=== PATIENT | male | born 1970 | race African-American/Black ===

== ENCOUNTER 2018-11-12 20:43 | Emergency (ER) | payer BC, SELFPAY ==
[2018-11-12 22:03] LABS: Absolute Lymphocytes (CBC) 3.3 K/uL (0.7-4.9); Absolute Monocytes 0.9 K/uL (0.1-1.3); Absolute Neutrophil 7.7 K/uL (1.8-8.0); Basophils % 0.8 % (0-1.3); Eosinophils % 2.7 % (0-4.4); Hematocrit 48.4 % (39.6-49.0); Lymphocytes % 26.6 % (15.3-44.8); MPV 8.9 fL (7.6-11.3); Monocytes % 7.5 % (3.3-12.3); RBC Red Blood Cell Count 5.24 M/uL (4.33-5.43)
[2018-11-12 22:15] LABS: Potassium 3.4 mmol/L (3.5-5.1)
--- NOTE | 2018-11-13 00:31 | ER ---
Nurse's Notes [facility] Name: Alex Brady Age: 48 yrs Sex: Male : 1970 Arrival Date: 11/12/2018 Time: 20:48 Bed 13 Private MD: Diagnosis: ORDONTOGENIC NECK ABSCESS Presentation: 11/12 21:04 Presenting complaint: Patient states: "I started out with a toothache I've been on aj1 antibiotics for 2 weeks and the tooth doesn't hurt anymore, but I still have a knot under my jaw, its getting hard and now it hurts to swallow" Denies fever. Transition of care: patient was not received from another setting of care. Onset of symptoms was October 2018. Risk Assessment: Do you want to hurt yourself or someone else? Patient reports no desire to harm self or others. Initial Sepsis Screen: Does the patient meet any 2 criteria? No. Patient's initial sepsis screen is negative. Does the patient have a suspected source of infection? Yes: Other: tooth infection. Care prior to arrival: None. 21:04 Method Of Arrival: [facility] 21:04 Acuity: MAHAMED 4 aj1 Triage Assessment: 21:07 General: Appears in no apparent distress. uncomfortable, Behavior is calm, cooperative, aj1 appropriate for age. Pain: Complains of pain in right jaw. Pain: Pain currently is 10 out of 10 on a pain scale. EENT: swelling noted to right lower jaw. Neuro: Level of Consciousness is awake, alert, obeys commands. Cardiovascular: Patient's skin is warm and dry. Respiratory: Airway is patent Respiratory effort is even, unlabored, Respiratory pattern is regular, symmetrical. Historical: - Allergies: 21:07 PENICILLINS; aj1 - Home Meds: 21:07 Dicyclomine Oral [Active]; clindamycin HCl Oral [Active]; Lovastatin Oral [Active]; aj1 Omeprazole Oral [Active]; - PMHx: 21:07 GERD; Hyperlipidemia; dental caries; aj1 - Immunization history:: Flu vaccine is not up to date. - Social history:: Smoking status: Patient uses tobacco products, denies chronic smoking, but will smoke occasionally. - Ebola Screening: : Patient denies travel to an Ebola-affected area in the 21 days before illness onset. Screenin:10 Abuse screen: Denies threats or abuse. Nutritional screening: No deficits noted. jb4 Tuberculosis screening: No symptoms or risk factors identified. Fall Risk None identified. Assessment: 21:10 General: Appears in no apparent distress. uncomfortable, Behavior is calm, cooperative, jb4 appropriate for age. Pain: Complains of pain in right mandible Pain does not radiate. Pain currently is 4 out of 10 on a pain scale. Quality of pain is described as burning. Neuro: Level of Consciousness is awake, alert, obeys commands, Oriented to person, place, time, situation. Cardiovascular: Patient's skin is warm and dry. Respiratory: Airway is patent Respiratory effort is even, unlabored, Respiratory pattern is regular, symmetrical. GI: No signs and/or symptoms were reported involving the gastrointestinal system. : No signs and/or symptoms were reported regarding the genitourinary system. EENT: Throat is clear is reddened. Derm: Skin is intact, Skin is dry, Skin is normal, Skin temperature is warm Abscess located on right jaw is golf ball sized. Musculoskeletal: Circulation, motion, and sensation intact. Range of motion: intact in all extremities. 22:00 Reassessment: Patient appears in no apparent distress at this time. Patient and/or jb4 family updated on plan of care and expected duration. Pain level reassessed. Patient is alert, oriented x 3, equal unlabored respirations, skin warm/dry/pink. 11/13 02:08 Reassessment: Patient appears in no apparent distress at this time. Patient and/or ed1 family updated on plan of care and expected duration. Pain level reassessed. Patient is alert, oriented x 3, equal unlabored respirations, skin warm/dry/pink. Report called to MARY BETH Peace at [facility] Patient states feeling better. Patient states symptoms have improved. Vital Signs: 11/12 21:07 BP 134 / 103; Pulse 78; Resp 18; Temp 97.9; Pulse Ox 100% on R/A; Weight 117.93 kg (R); aj1 Pain 10/10; 22:00 BP 139 / 84; Pulse 71; Resp 18; Pulse Ox 97% on R/A; jb4 11/13 02:08 BP 136 / 82; Pulse 65; Resp 17; Temp 98.2(O); Pulse Ox 100% on R/A; Pain 0/10; ed1 ED Course: 11/12 20:48 Patient arrived in ED. es 21:05 Triage completed. aj1 21:07 Arm band placed on Patient placed in an exam room. aj1 21:09 Flora Shepard FNP-C is PHCP. kb 21:09 Demetrius Syed MD is Attending Physician. kb 21:10 Patient has correct armband on for positive identification. Placed in gown. Bed in low jb4 position. Call light in reach. Side rails up X 1. Pulse ox on. NIBP on. 21:28 Jamal Rod, MARY BETH is Primary Nurse. jb4 21:33 Radiology exam delayed due to lab results not completed at this time. (BUN/Creatinine). jg6 21:45 Initial lab(s) drawn, by me, sent to lab. Inserted saline lock: 20 gauge in right jb4 antecubital area, using aseptic technique. Blood collected. 21:53 CBC with Diff Sent. jb4 21:53 Basic Metabolic Panel Sent. jb4 22:14 Radiology exam delayed due to lab results not completed at this time. (BUN/Creatinine). jg6 22:46 CT completed. Patient tolerated procedure well. Patient moved to CT. Patient moved back nj from CT. 23:09 CT Abd/Pelvis - W/Contrast In Process Unspecified. EDMS 23:11 CT Soft Tissue Neck W/contr In Process Unspecified. EDMS 03 02:59 No provider procedures requiring assistance completed. Patient transferred, IV remains ed1 in place. intact, No redness/swelling at site. Administered Medications: 00:31 Drug: Clindamycin 900 mg Route: IVPB; Infused Over: 30 mins; Site: right antecubital; ao 00:58 Follow up: Response: No adverse reaction; IV Status: Completed infusion; IV Intake: [id number] 00:58 Drug: Rocephin 1 grams Route: IV; Rate: calculated rate; Site: right antecubital; ed1 01:30 Follow up: Response: No adverse reaction; IV Status: Completed infusion ed1 00:58 Drug: Flagyl 500 mg Volume: 100 ml; Route: IVPB; Rate: 200 ml/hr; Infused Over: 30 ed1 mins; Site: right antecubital; 01:30 Follow up: Response: No adverse reaction; IV Status: Completed infusion ed1 Intake: 00:58 IV: 50ml; Total: 50ml. ed1 Outcome: 00:30 ER care complete, transfer ordered by MD. rodriguez 02:59 Transferred by ground EMS [facility] to [facility], Transfer form ed1 completed. X-rays sent w/ patient. Note: Report called to MARY BETH Peace 02:59 Condition: stable 02:59 Discharge instructions given to patient, Instructed on the need for admit, Demonstrated understanding of instructions. 03:00 Patient left the ED. ed1 Signatures: Dispatcher [employer] EDMS Flora Shepard, SANDBLAST CARVER-C SANDBLAST CARVER-CkAlbertina Curtis, RN RN aj1 Kathleen Justin Erika RN RN ed1 Iban Leon RN Jamal Mullins RN RN jbChey Rose, Danny Hayes, Scarlet [email or web address] Corrections: (The following items were deleted from the chart) 11/12 21:09 21:07 EKG completed in triage. Results shown to MD. antonino muñiz 21: 21:07 EKG completed in triage. Results shown to MD. antonino muñiz 22:19 22:17 General: Appears in no apparent distress. uncomfortable, Behavior is jb4 jb4
--- NOTE | 2018-11-13 00:31 | EDPHYS ---
Physician Documentation [facility] Name: Alex Brady Age: 48 yrs Sex: Male : 1970 Arrival Date: 11/12/2018 Time: 20:48 Bed 13 Private MD: ED Physician Demetrius Syed HPI: 11/12 23:08 This 48 yrs old Male presents to ER via Ambulatory with complaints of sore throat.kb 23:09 The patient presents with sore throat. The patient describes throat pain as constant, kb raw. Onset: The symptoms/episode began/occurred 2 week(s) ago. Severity of symptoms: At their worst the symptoms were moderate, in the emergency department the symptoms are unchanged. Modifying factors: The symptoms are alleviated by nothing, the symptoms are aggravated by swallowing. Associated signs and symptoms: Pertinent positives: Sore throat. The patient has not experienced similar symptoms in the past. The patient has been recently seen by a physician:. Pt reports tooth infection that started 2 weeks ago, went to dentist and was given antibiotics for an infection. Reports he is still on the antibiotics, but now has a lump to the right side of his neck and his toothache has been gone. Now he has pain in his throat. Also reports lower abd pain for 3 years. Has had an x-ray in the past and was told he needed a CT, but hasn't gone back to the dr to get one done. Historical: - Allergies: 21:07 PENICILLINS; aj1 - Home Meds: 21:07 Dicyclomine Oral [Active]; clindamycin HCl Oral [Active]; Lovastatin Oral [Active]; aj1 Omeprazole Oral [Active]; - PMHx: 21:07 GERD; Hyperlipidemia; dental caries; aj1 - Immunization history:: Flu vaccine is not up to date. - Social history:: Smoking status: Patient uses tobacco products, denies chronic smoking, but will smoke occasionally. - Ebola Screening: : Patient denies travel to an Ebola-affected area in the 21 days before illness onset. ROS: 23:09 Constitutional: Negative for fever, chills, and weight loss, Neck: Negative for injury, kb pain, and swelling, Cardiovascular: Negative for chest pain, palpitations, and edema, Respiratory: Negative for shortness of breath, cough, wheezing, and pleuritic chest pain, Back: Negative for injury and pain, : Negative for injury, bleeding, discharge, and swelling, MS/Extremity: Negative for injury and deformity, Skin: Negative for injury, rash, and discoloration, Neuro: Negative for headache, weakness, numbness, tingling, and seizure. 23:09 ENT: Positive for sore throat. 23:09 Abdomen/GI: Positive for abdominal pain. Exam: 23:17 Constitutional: This is a well developed, well nourished patient who is awake, alert, kb and in no acute distress. Head/Face: Normocephalic, atraumatic. Chest/axilla: Normal chest wall appearance and motion. Nontender with no deformity. No lesions are appreciated. Cardiovascular: Regular rate and rhythm with a normal S1 and S2. No gallops, murmurs, or rubs. Normal PMI, no JVD. No pulse deficits. Respiratory: Lungs have equal breath sounds bilaterally, clear to auscultation and percussion. No rales, rhonchi or wheezes noted. No increased work of breathing, no retractions or nasal flaring. Abdomen/GI: Soft, non-tender, with normal bowel sounds. No distension or tympany. No guarding or rebound. No evidence of tenderness throughout. Back: No spinal tenderness. No costovertebral tenderness. Full range of motion. Skin: Warm, dry with normal turgor. Normal color with no rashes, no lesions, and no evidence of cellulitis. MS/ Extremity: Pulses equal, no cyanosis. Neurovascular intact. Full, normal range of motion. Neuro: Awake and alert, GCS 15, oriented to person, place, time, and situation. Cranial nerves II-XII grossly intact. Motor strength 5/5 in all extremities. Sensory grossly intact. Cerebellar exam normal. Normal gait. 23:17 ENT: External ear(s): are unremarkable, Ear canal(s): are normal, TM's: are normal, Nose: is normal, Mouth: is normal, Posterior pharynx: Airway: normal, no evidence of obstruction, Tonsils: are normal in appearance, Uvula: normal, midline, erythema, that is moderate, Dental exam: dental caries, slight trismus. 11/13 00:20 Neck: External neck: mass, that is moderate-sized, of the right submandibular area, kb that is tender to palpation, tenderness. Vital Signs: 11/12 21:07 BP 134 / 103; Pulse 78; Resp 18; Temp 97.9; Pulse Ox 100% on R/A; Weight 117.93 kg (R); aj1 Pain 10/10; 22:00 BP 139 / 84; Pulse 71; Resp 18; Pulse Ox 97% on R/A; jb4 11/13 02:08 BP 136 / 82; Pulse 65; Resp 17; Temp 98.2(O); Pulse Ox 100% on R/A; Pain 0/10; ed1 MDM: 11/12 21:09 Patient medically screened. kb 23:37 Data reviewed: vital signs, nurses notes. Data interpreted: Pulse oximetry: on room air kb is 97 %. Interpretation: normal. 11/13 00:29 Counseling: I had a detailed discussion with the patient and/or guardian regarding: the kb historical points, exam findings, and any diagnostic results supporting the discharge/admit diagnosis, lab results, radiology results, the need to transfer to another facility, [facility] does not immediately have the required specialist. ED course: Pt transferred to [facility] because [facility] does not have O[facility] services. 11/12 21:29 Order name: Basic Metabolic Panel; Complete Time: 22:27 kb 11/12 21:29 Order name: CBC with Diff; Complete Time: 22:08 kb 11/12 21:29 Order name: CT Abd/Pelvis - W/Contrast kb 11/12 21:29 Order name: CT Soft Tissue Neck W/contr kb 11/12 21:29 Order name: IV Saline Lock; Complete Time: 21:53 kb 11/12 21:29 Order name: Labs collected and sent; Complete Time: 21:53 kb Administered Medications: 00:31 Drug: Clindamycin 900 mg Route: IVPB; Infused Over: 30 mins; Site: right antecubital; ao 00:58 Follow up: Response: No adverse reaction; IV Status: Completed infusion; IV Intake: [id number] 00:58 Drug: Rocephin 1 grams Route: IV; Rate: calculated rate; Site: right antecubital; ed1 01:30 Follow up: Response: No adverse reaction; IV Status: Completed infusion ed1 00:58 Drug: Flagyl 500 mg Volume: 100 ml; Route: IVPB; Rate: 200 ml/hr; Infused Over: 30 ed1 mins; Site: right antecubital; 01:30 Follow up: Response: No adverse reaction; IV Status: Completed infusion ed1 Disposition: 11/13/18 00:30 Transfer ordered to [facility]. Diagnosis is ORDONTOGENIC NECK ABSCESS. - Reason for transfer: Higher level of care. - Accepting physician is DONA GARCIA. - Condition is Stable. - Problem is new. - Symptoms are unchanged. Addendum: 11/16/2018 19:28 Co-signature as Attending Physician, Demetrius Syed MD. g s Signatures: Dispatcher [employer] EDMS Flora Shepard, OPERATIONS TRAINER-C OPERATIONS TRAINER-Ckb Albertina Goodson RN RN aj1 Farnaz Abbott RN RN ed1 Iban Leon RN Demetrius Rosado MD MD gs Corrections: (The following items were deleted from the chart) 11/13 00:20 11/12 23:17 Constitutional: This is a well developed, well nourished patient who is kb awake, alert, and in no acute distress. Head/Face: Normocephalic, atraumatic. Chest/axilla: Normal chest wall appearance and motion. Nontender with no deformity. No lesions are appreciated. Cardiovascular: Regular rate and rhythm with a normal S1 and S2. No gallops, murmurs, or rubs. Normal PMI, no JVD. No pulse deficits. Respiratory: Lungs have equal breath sounds bilaterally, clear to auscultation and percussion. No rales, rhonchi or wheezes noted. No increased work of breathing, no retractions or nasal flaring. Abdomen/GI: Soft, non-tender, with normal bowel sounds. No distension or tympany. No guarding or rebound. No evidence of tenderness throughout. Back: No spinal tenderness. No costovertebral tenderness. Full range of motion. Skin: Warm, dry with normal turgor. Normal color with no rashes, no lesions, and no evidence of cellulitis. MS/ Extremity: Pulses equal, no cyanosis. Neurovascular intact. Full, normal range of motion. Neuro: Awake and alert, GCS 15, oriented to person, place, time, and situation. Cranial nerves II-XII grossly intact. Motor strength 5/5 in all extremities. Sensory grossly intact. Cerebellar exam normal. Normal gait. kb 11/13 00:20 11/12 23:17 ENT: External ear(s): are unremarkable, Ear canal(s): are normal, TM's: are kb normal, Nose: is normal, Mouth: is normal, Posterior pharynx: Airway: normal, no evidence of obstruction, Tonsils: are normal in appearance, Uvula: normal, midline, erythema, that is moderate, kb 11/13 00:34 00:30 11/13/2018 00:30 Transfer ordered to [facility]. Diagnosis is ORDONTOGENIC kb NECK ABSCESS. Reason for transfer: Higher level of care. Accepting physician is Peg Hayes. Condition is Stable. Problem is new. Symptoms are unchanged. kb : 00:34 11/13/2018 00:30 Transfer ordered to [facility]. Diagnosis is ORDONTOGENIC ed1 NECK ABSCESS. Reason for transfer: Higher level of care. Accepting physician is DONA GARCIA. Condition is Stable. Problem is new. Symptoms are unchanged. kb
[2018-11-13] MEDS ORDERED: CLINDAMYCIN 900MG/D5W 900 MG/50 ML IVPB IV ONE (00:36)
[2018-11-13] MEDS ORDERED: METRONIDAZOLE 500mg IVPB 500 MG/100 ML BAG IV ONE (00:54)
[2018-11-13] MEDS ORDERED: CEFTRIAXONE/SWI 1gm 1 GM/10 ML SYR ONE (00:54)
--- NOTE | 2018-11-13 10:36 | RAD REPORT ---
EXAM DESCRIPTION: CT - Soft Tissue Neck W/Contr - 11/13/2018 1:08 am CLINICAL HISTORY: R/o abscess, right neck mass. Enteral caries. COMPARISON: None. TECHNIQUE: CT examination of the soft tissue neck is performed on a multi-detector scanner without a nd following intravenous contrast administration. 100 cc of Omnipaque-300 was injected. Sagittal and coronal formations are obtained. Automatic exposure control (A EC), mA and/or kV adjustment by ja ent size, and/or interatrial reconstructive technique was used, per departmental dose optimization pr ogram, during the performance of the CT examination. FINDINGS: The paranasal sinuses demonstrate air-fluid level in the left maxillary sinus.. Normal barney earance of the mastoid air cells are noted. Normal appearance of the globe and retrobulbar regions of the orbits are noted. Soft tissues of the f aileen appears unremarkable without any swelling. Presence of an abscess is noted along the medial aspect of the right mandible along the buccal mucosa with mass effect on the right side of the tongue. The abscess measures 3.7 x 2 x 2.2 cm and extends inferiorly up to the mylohyoid muscle. It is also immediately adjacent to the right submandibular eliu ozzy gland. Presence of a few slightly enlarged submandibular lymph nodes are noted. Evidence of denta l caries is noted in the right posterior most mandibular molar with periapical lucency and evidence o f dental caries. Evidence of dental caries is also noted in the adjacent residual portions of the laura ts of the first and second molars. Evidence of dental caries is also noted involving the left mandibu lar and maxillary teeth. Enlarged jugulodigastric chain lymph nodes are noted on the right and left submental lymph node measu ring 1.2 x 1.1 cm in size is noted in the midline. Normal appearance of the submandibular and parotid salivary glands are noted without any evidence of enlargement, abnormal enhancement, focal masses or calcifications. Normal appearance of the thyroid g land is noted without any evidence of abnormal attenuation or enhancement. Normal appearance of the vocal cords, subglottic trachea and epiglottis are noted. The included porti ons of the mediastinum and lung apices are unremarkable. . Normal appearance of the carotid and jugular vessels are noted. The prevertebral soft tissues are n ormal. The cervical spine and intervertebral disc spaces are essentially unremarkable. IMPRESSION: Presence of a abscess in the floor of the mouth on the right adjacent to the right poste rior mandible likely secondary to dental caries. Abscess. Mass effect on the right border of the tong ue, on the mylohyoid muscle and the right submandibular saliva gland. No demonstrable evidence of ost eomyelitis. Reactive lymphadenopathy. Electronically signed by: Vicky Osborne MD 11/12/2018 11:27 PM CDT Due to temporary technical issues with the PACS/Fluency reporting system, reports are being signed by the in house radiologist as a courtesy to ensure prompt reporting. The interpreting radiologist is f ully responsible for the content of the report.
--- NOTE | 2018-11-13 10:38 | RAD REPORT ---
EXAM DESCRIPTION: CT - Abdomen Pelvis W Contrast - 11/13/2018 1:08 am CLINICAL HISTORY: Abdominal pain. GERD COMPARISON: None. TECHNIQUE: Contiguous axial sections are obtained through the abdomen and pelvis as per protocol aft er administration of iodinated contrast. Oral contrast was not administered. . Sagittal and coronal r eformations were obtained. Automatic exposure control (AEC), mA and/or kV adjustment by patient size, and/or iterative reconst ructive technique was used, per departmental dose optimization program, during the performance of the CT examination. FINDINGS: The naturopathic doctor view demonstrates no abnormalities. The visualized lung bases demonstrates calcified granuloma in the right lower lobe. A small hiatal he rnia is noted. The liver is normal in size and demonstrates normal attenuation and enhancement. The spleen, pancre as, adrenal glands appear normal in size and attenuation without any focal abnormalities. The gallbla dder is normal. Kidneys demonstrate no evidence of calculi. Kidneys are normal in size, shape, attenuation and enhanc ement. The aorta, IVC and retroperitoneal structures appear normal . The stomach appearsunremarkable . The small bowel loops appear unremarkable. The appendix is normal . The colon isunremarkable. No evidence of free intraperitoneal fluid or air is noted. CT examination of the pelvis demonstrates no evidence of mass or adenopathy. The urinary bladder appe ars normal. The Reproductive organs are unremarkable. Inguinal regions are unremarkable. Degenerative disc disease is seen in the lower lumbar spine at L4-5 and L5-S1 level with vacuum pheno martino. Mild posterior spondylosis is noted with broad-based disc protrusions at L4-5 and L5-S1. IMPRESSION: Small hiatal hernia. Degenerative disc disease in the lower lumbar spine. Electronically signed by: Vicky Osborne MD 11/12/2018 11:17 PM CDT Due to temporary technical issues with the PACS/Fluency reporting system, reports are being signed by the in house radiologist as a courtesy to ensure prompt reporting. The interpreting radiologist is f amandaly responsible for the content of the report.
== END 2018-11-13 03:00 | disposition short-term general hospital (02) ==
LOC: ER 20:43
DX: L02.11 Cutaneous abscess of neck (principal); E78.5 Hyperlipidemia, unspecified; K21.9 Gastro-esophageal reflux disease without esophagitis; Z72.0 Tobacco use; Z88.0 Allergy status to penicillin
CPT/HCPCS: 36415; 70491; 74177; 80048; 85025; 96365; 96367; 96368; 99285; J0696; Q9967